=== PATIENT | female | born 1980 | race African-American/Black ===

== ENCOUNTER 2020-11-12 09:11 | Observation (INO) ==
[2020-11-12 11:42] LABS: Basophils % 0.3 %; Hematocrit 40.8 % (35.3-44.9); Hemoglobin 13.6 g/dL (11.5-15.4); Immature Granulocytes % 0.3 % (0-4); Lymphocytes # 1.1 K/mcL (0.6-4.6); Lymphocytes % 28.2 %; Mean Corpuscular HGB Conc 33.3 g/dL (31.6-35.5); Mean Corpuscular Hemoglobin 29.6 pg (28.0-33.3); Mean Corpuscular Volume 88.9 fL (83.0-100.0); Mean Platelet Volume 9.1 fL (9.4-12.4); Monocytes # 0.2 K/mcL (0.0-1.3); Monocytes % 4.9 %; Neutrophils # 2.6 K/mcL (1.6-8.9); Platelet Count 183 K/mcL (140-400); Red Blood Count 4.59 M/mcL (3.82-4.97); Red Cell Distribution Width 11.9 % (11.5-14.5); Segmented Neutrophils % 66.3 %; White Blood Count 3.9 K/mcL (4.3-11.1)
[2020-11-12 12:02] LABS: BUN/Creatinine Ratio 18 (6-26); Blood Urea Nitrogen 10 mg/dL (6-20); Calcium 9.1 mg/dL (8.6-10.3); Carbon Dioxide 29 mEq/L (23-29); Chloride 103 mEq/L (98-107); Glucose 107 mg/dL (70-105); Osmolality,Calculated 288 (280-300); Potassium 4.2 mEq/L (3.5-5.1); Sodium 139 mEq/L (136-145); eGFR For African Americans > 60 (> 60); eGFR For Non-African Americans > 60 (> 60)
[2020-11-12] MEDS ORDERED: Isovue-370 500 ML BOTTLE IVP ONE (12:57)
[2020-11-12] MEDS ORDERED: Acetaminophen 325 MG TABLET PO ONE (16:48)
[2020-11-12] MEDS ORDERED: Acetaminophen 325 MG TABLET PO PRN (16:56)
[2020-11-12] MEDS ORDERED: Ondansetron 4 MG/2 ML VIAL IVP PRN (16:56)
[2020-11-12] MEDS ORDERED: Naloxone 0.4 MG/ML INJ IVP PRN (16:56)
[2020-11-12] MEDS ORDERED: dexAMETHasone 4 MG TABLET PO ONE (17:18)
[2020-11-12 18:27] LABS: C-Reactive Protein 13 mg/L (Less than 10)
[2020-11-12 18:35] LABS: Troponin I 0.03 ng/mL (< 0.04)
[2020-11-13 04:06] VITALS: TEMP 97.8
[2020-11-13 05:26] LABS: Alanine Aminotransferase 14 Units/L (7-52); Albumin 4.4 g/dL (3.5-5.7); Albumin/Globulin Ratio 1.6 (1.1-2.2); Alkaline Phosphatase 64 Units/L (34-104); Aspartate Amino Transferase 15 Units/L (13-39); BUN/Creatinine Ratio 22 (6-26); Bilirubin,Total 0.4 mg/dL (0.3-1.0); Blood Urea Nitrogen 11 mg/dL (6-20); Carbon Dioxide 24 mEq/L (23-29); Chloride 104 mEq/L (98-107); Globulin 2.7 g/dL (2.4-3.5); Glucose 168 mg/dL (70-105); Magnesium 2.2 mg/dL (1.6-2.6); Osmolality,Calculated 287 (280-300); Phosphorous 2.6 mg/dL (2.7-4.5); Sodium 137 mEq/L (136-145); Total Protein 7.1 g/dL (6.4-8.9); eGFR For African Americans > 60 (> 60); eGFR For Non-African Americans > 60 (> 60)
[2020-11-13] MEDS ORDERED: *HR* Enoxaparin 40 MG/0.4 ML SYRINGE SQ SCH (06:00)
[2020-11-13 08:20] VITALS: BP 112/75; PULSE 73
[2020-11-13] MEDS ORDERED: Cholecalciferol (D-3) 1,000 UNIT (25MCG) TABLET PO SCH (09:00)
[2020-11-13] MEDS ORDERED: dexAMETHasone 4 MG TABLET PO SCH (09:00)
[2020-11-13 12:05] VITALS: O2SAT 96
[2020-11-13] MEDS ORDERED: Latanoprost 2.5 ML BOTTLE BOTH EYES SCH (21:00)
== END 2020-11-13 13:43 | disposition home or self-care (01) ==
LOC: 3BNU 09:11 → EMEROOARM 09:11 → SUATTDRO 18:02 → 3BNU 18:39
PROVIDERS: ADMIT Internal Medicine; ATTEND Internal Medicine